=== PATIENT | male | born 1970 | race Caucasian/White ===

== ENCOUNTER 2021-07-30 14:07 | Emergency (ER) | payer BC ==
[2021-07-30] MEDS ORDERED: Ondansetron 4 MG/2 ML SDV IVPUSH ONE (14:42)
[2021-07-30] MEDS ORDERED: HYDROmorphone 0.5 MG/0.5 ML Syringe IVPUSH ONE (14:42)
[2021-07-30] MEDS ORDERED: Dextrose 5%-0.9% NaCl 1,000 ML IV SCH (14:45)
[2021-07-30] MEDS ORDERED: Ketorolac 30 MG/ML SDV IVPUSH SCH (14:45)
--- NOTE | 2021-07-30 14:51 | EDM.PDOC ---
ED HPI GENERAL MEDICAL PROBLEM - General Chief Complaint: Chest Pain Stated Complaint: CHEST PAIN WHEN BREATHING Time Seen by Provider: 07/30/21 14:30 Source of Information: Reports: Patient History Limitations: Reports: No Limitations - History of Present Illness INITIAL COMMENTS - FREE TEXT/NARRATIVE: 51-year-old male presents to the ED complaining of severe left-sided parasternal and anterior chest pain that radiates up into his neck controlled with deep inspiration. It started last evening suddenly and is gradually increased in intensity. He reports coughing is unbearably painful. He is a smoker on average a pack per day. He denies fever chills but has been fatigued and lethargic the last 2 to 3 weeks. He did have a COVID-19 test 3 weeks ago which proved to be negative. He has been working 2 jobs with long hours. No real cold symptoms or nasal congestion. States he has is normal cough in the morning from smoking with no hemoptysis. Cannot take a full deep breath at this time due to severe sharp stab he pleuritic chest pain. Also has some pain in the central part of his chest but states that pain is much worse if he lies flat. He has not taken any medication for the pain. He has no allergies and currently is on no medication from a doctor. Onset: Sudden Onset Date: 07/29/21 Onset Time: 19:00 Duration: Hour(s):, Getting Worse Location: Reports: Chest (Left precordial parasternal chest pain rating up into his neck and throat left lateral neck worse by lying flat and deep breathing) Quality: Reports: Other (Strong sharp pleuritic chest pain with deep inspiration left chest) Severity: Severe (And on the 10) Improves with: Reports: Rest (Rest sitting up in shallow breathing help ease the discomfort) Worsens with: Reports: Movement (Worsened when lying flat or coughing.) Context: Reports: Other (Spontaneous occurrence). Denies: Activity ( Made worse by deep breathing.), Exercise, Lifting, Sick Contact, Trauma Associated Symptoms: Reports: No Other Symptoms, Chest Pain, Cough, cough w sputum (Normal smoker's cough but no worse than normal), Loss of Appetite, Shortness of Breath (Has not eaten at all today.). Denies: Confusion, Diaphoresis, Fever/Chills, Headaches, Malaise ( occasional sputum in the mornings), Nausea/Vomiting, Rash, Seizure ( Subjective shortness of breath is deep breathing makes the pain much worse), Syncope, Weakness Treatments CONSTRUCTION STONEMASON: Reports: Other (see below) (None.) Mid-Sternal Chest Pain Score (Numeric/FACES): 2 - Related Data Allergies Allergy/AdvReac Type Severity Reaction Status Date / Time No Known Allergies Allergy Verified 05/30/14 11:59 Home Meds: Home Meds Amoxicillin/Potassium Clav [Augmentin 500-125 Tablet] 1 each PO BID #16 tablet 07/30/21 [Rx] Diclofenac Sodium [Voltaren] 75 mg PO BIDMEALS #10 tab.cr 07/30/21 [Rx] oxyCODONE HCl/Acetaminophen [Percocet 5-325 mg Tablet] 1 - 2 each PO Q4H PRN #20 tablet 07/30/21 [Rx] predniSONE [Prednisone] 20 mg PO ASDIRECTED #15 tablet 07/30/21 [Rx] Past Medical History HEENT History: Reports: Impaired Vision Other HEENT History: readers Cardiovascular History: Reports: None Respiratory History: Reports: None Gastrointestinal History: Reports: None Genitourinary History: Reports: None Musculoskeletal History: Reports: Back Pain, Chronic, Other (See Below) Other Musculoskeletal History: Back surgeries x 4 with fusion and TENS unit implanted Neurological History: Reports: None Psychiatric History: Reports: None Endocrine/Metabolic History: Reports: None Oncologic (Cancer) History: Reports: None Dermatologic History: Reports: None - Past Surgical History Head Surgeries/Procedures: Reports: None HEENT Surgical History: Reports: Naso-Sinus Surgery GI Surgical History: Reports: Appendectomy Social & Family History - Family History Oncologic: Reports: Brain, Lung - Tobacco Use Tobacco Use Status *Q: Current Every Day Tobacco User Tobacco Use Within Last Twelve Months: Cigarettes (1 pack/day) - Caffeine Use Caffeine Use: Reports: Coffee, Tea - Living Situation & Occupation Living situation: Reports: (Currently working 2 jobs) Occupation: Employed ED ROS GENERAL - Review of Systems Review Of Systems: See Below Constitutional: Reports: Malaise, Fatigue (Which he blames on working 2 jobs and not getting much rest.). Denies: Fever, Chills HEENT: Reports: No Symptoms Respiratory: Reports: Shortness of Breath, Pleuritic Chest Pain, Cough (See history of present illness), Sputum. Denies: Wheezing Cardiovascular: Reports: Chest Pain (There is no sputum production in the mornings see history of present illness). Denies: Blood Pressure Problem, Claudication, Dyspnea on Exertion, Edema, Lightheadedness, Orthopnea Endocrine: Reports: Fatigue GI/Abdominal: Reports: No Symptoms : Reports: No Symptoms Musculoskeletal: Reports: Back Pain (Chronic low back pain much better since surgery patient has had 4 previous back surgeries as well as a transcutaneous nerve stimulator device implanted) Skin: Reports: No Symptoms Neurological: Reports: No Symptoms Psychiatric: Reports: No Symptoms Hematologic/Lymphatic: Reports: No Symptoms ED EXAM, GENERAL - Physical Exam Exam: See Below Exam Limited By: No Limitations General Appearance: Alert, WD/WN, Moderate Distress (Anxious in obvious pain and discomfort.), Other (Temperature is 36.1 degrees. Heart rate 72 and sinus. Respiratory is 18 with O2 sats of 99% on room air. BP 141/83) Eye Exam: Bilateral Eye: Normal Inspection, PERRL Throat/Mouth: Other (Oropharynx is mildly erythematous from cigarette smoking no signs of infection) Head: Atraumatic, Normocephalic Neck: Normal Inspection, Supple, Non-Tender, Full Range of Motion. No: Carotid Bruit, Lymphadenopathy (L), Lymphadenopathy (R) Respiratory/Chest: Chest Non-Tender, Respiratory Distress, Decreased Breath Sounds, Wheezing (Scattered wheezes both lung bases). No: Normal Breath Sounds, Rales (Mildly decreased in the lower 15% lung bradford bilaterally), Rhonchi Cardiovascular: Normal Peripheral Pulses, Regular Rate, Rhythm, No Edema, No Gallop, No Murmur, No Rub Peripheral Pulses: 2+: Posterior Tibial (L), Posterior Tibial (R), Dorsalis Pedis (L), Dorsalis Pedis (R), 3+: Carotid (L), Carotid (R) GI/Abdominal: Normal Bowel Sounds, Soft, Non-Tender, No Organomegaly, No Distention, Distended (Mildly distended tympany to percussion due to aerophagia.) Back Exam: Other (Multiple surgical scars midline of the lumbar spine from p revious surgeries. Has previous 4 surgeries with spinal fusion) Extremities: Normal Inspection, Normal Range of Motion, Non-Tender, No Pedal Edema Neurological: Alert, Oriented, CN II-XII Intact, Normal Cognition Psychiatric: Anxious Skin Exam: Warm, Dry, Intact, Normal Color, No Rash #1 Interpretation EKG Date: 07/30/21 Time: 15:24 Rhythm: NSR Rate (Beats/Min): 74 [place]: Normal P-Wave: Enlarged (Sitter mild left atrial hypertrophy) ST-T: Other (Diffuse early repolarization pattern V3 and V4 with ST segment elevation V5 and V6 concerning for possible infarct. There is also mild ST segment elevation in lead I and lead II. This would lend itself more to a possible pericarditis) QT: Normal EKG Interpretation Comments: Abnormal ECG Course - Vital Signs Last Recorded V/S: Last Vital Signs Temp 36.1 C 07/30/21 14: Pulse 72 07/30/21 14: Resp 18 07/30/21 14: BP 141/83 H 07/30/21 14:21 Pulse Ox - Orders/Labs/Meds Orders: Active Orders 24 hr Category Date Time Status Dextrose 5%-0.9% NaCl [Dextrose 5%-Normal Saline] 1,000 Med 07/30/21 14:45 Active ml IV ASDIRECTED Ketorolac [Toradol] Med 07/30/21 14:45 Active 30 mg IVPUSH ONETIME Medication Orders Dextrose/Sodium Chloride (Dextrose 5%-Normal Saline) 1,000 mls @ 500 mls/hr IV ASDIRECTED ELSY Last Admin: 07/30/21 16:00 Dose: 500 mls/hr Documented by: [id number] Ketorolac Tromethamine (Ketorolac 30 Mg/Ml Sdv) 30 mg IVPUSH ONETIME ELSY Last Admin: 07/30/21 16:01 Dose: 30 mg Documented by: [id number] Labs: Laboratory Tests 07/30/21 07/30/21 07/30/21 Range/Units 15:50 15:50 15:50 WBC 11.52 H (4.23-9.07) K/mm3 RBC 5.44 (4.63-6.08) M/mm3 Hgb 16.7 (13.7-17.5) gm/dl Hct 49.1 (40.1-51.0) % MCV 90.3 (79.0-92.2) fl MCH 30.7 (25.7-32.2) pg MCHC 34.0 (32.2-35.5) g/dl RDW Std Deviation 46.7 H (35.1-43.9) fL Plt Count 208 (163-337) K/mm3 MPV 10.6 (9.4-12.3) fl Neut % (Auto) 64.8 (34.0-67.9) % Lymph % (Auto) 23.0 (21.8-53.1) % [place] % (Auto) 10.2 (5.3-12.2) % Eos % (Auto) 1.0 (0.8-7.0) Baso % (Auto) 0.4 (0.1-1.2) % Neut # (Auto) 7.46 H (1.78-5.38) K/mm3 Lymph # (Auto) 2.65 (1.32-3.57) K/mm3 [place] # (Auto) 1.18 H (0.30-0.82) K/mm3 Eos # (Auto) 0.11 (0.04-0.54) K/mm3 Baso # (Auto) 0.05 (0.01-0.08) K/mm3 PT 10.8 (9.7-12.0) SECONDS INR 0.97 APTT 27.2 (21.7-31.4) SECONDS Sodium 136 (136-145) mEq/L Potassium 3.9 (3.5-5.1) mEq/L Chloride 104 (98-107) mEq/L Carbon Dioxide 25 (21-32) mEq/L Anion Gap 10.9 (5-15) BUN 12 (7-18) mg/dL Creatinine 1.0 (0.7-1.3) mg/dL Est Cr Clr Drug Dosing 111.38 mL/min Estimated GFR (MDRD) > 60 (>60) mL/min BUN/Creatinine Ratio 12.0 L (14-18) Glucose 96 (70-99) mg/dL Calcium 8.9 (8.5-10.1) mg/dL Magnesium 2.3 (1.8-2.4) mg/dL Total Bilirubin 0.9 (0.2-1.0) mg/dL AST 12 L (15-37) U/L ALT 23 (16-63) U/L Alkaline Phosphatase 75 (46-116) U/L CK-MB (CK-2) 0.6 (0-3.6) ng/ml Troponin I < 0.017 (0.00-0.056) ng/mL C-Reactive Protein 6.7 H* (<1.0) mg/dL NT-Pro-B Natriuret Pep (0-125) pg/mL Total Protein 7.9 (6.4-8.2) g/dl Albumin 3.9 (3.4-5.0) g/dl Globulin 4.0 gm/dL Albumin/Globulin Ratio 1.0 (1-2) SARS-CoV-2 RNA ([place]) (NEGATIVE) 07/30/21 07/30/21 Range/Units 15:50 16:00 WBC (4.23-9.07) K/mm3 RBC (4.63-6.08) M/mm3 Hgb (13.7-17.5) gm/dl Hct (40.1-51.0) % MCV (79.0-92.2) fl MCH (25.7-32.2) pg MCHC (32.2-35.5) g/dl RDW Std Deviation (35.1-43.9) fL Plt Count (163-337) K/mm3 MPV (9.4-12.3) fl Neut % (Auto) (34.0-67.9) % Lymph % (Auto) (21.8-53.1) % [place] % (Auto) (5.3-12.2) % Eos % (Auto) (0.8-7.0) Baso % (Auto) (0.1-1.2) % Neut # (Auto) (1.78-5.38) K/mm3 Lymph # (Auto) (1.32-3.57) K/mm3 [place] # (Auto) (0.30-0.82) K/mm3 Eos # (Auto) (0.04-0.54) K/mm3 Baso # (Auto) (0.01-0.08) K/mm3 PT (9.7-12.0) SECONDS INR APTT (21.7-31.4) SECONDS Sodium (136-145) mEq/L Potassium (3.5-5.1) mEq/L Chloride (98-107) mEq/L Carbon Dioxide (21-32) mEq/L Anion Gap (5-15) BUN (7-18) mg/dL Creatinine (0.7-1.3) mg/dL Est Cr Clr Drug Dosing mL/min Estimated GFR (MDRD) (>60) mL/min BUN/Creatinine Ratio (14-18) Glucose (70-99) mg/dL Calcium (8.5-10.1) mg/dL Magnesium (1.8-2.4) mg/dL Total Bilirubin (0.2-1.0) mg/dL AST (15-37) U/L ALT (16-63) U/L Alkaline Phosphatase (46-116) U/L CK-MB (CK-2) (0-3.6) ng/ml Troponin I (0.00-0.056) ng/mL C-Reactive Protein (<1.0) mg/dL NT-Pro-B Natriuret Pep 205 H (0-125) pg/mL Total Protein (6.4-8.2) g/dl Albumin (3.4-5.0) g/dl Globulin gm/dL Albumin/Globulin Ratio (1-2) SARS-CoV-2 RNA ([place]) Negative (NEGATIVE) Meds: Medications Generic Name Dose Route Start Last Admin Trade Name Freq PRN Reason Stop Dose Admin Dextrose/Sodium Chloride 1,000 mls @ 500 mls/hr 07/30/21 14:45 07/30/21 16:00 Dextrose 5%-Normal Saline IV 500 mls/hr ASDIRECTED ELSY Administration Ketorolac Tromethamine 30 mg 07/30/21 14:45 07/30/21 16:01 Ketorolac 30 Mg/Ml Sdv IVPUSH 30 mg ONETIME ELSY Administration Discontinued Medications Generic Name Dose Route Start Last Admin Trade Name Freq PRN Reason Stop Dose Admin Hydromorphone HCl 0.5 mg 07/30/21 14:42 07/30/21 16:01 Hydromorphone 0.5 Mg/0.5 Ml Syringe IVPUSH 07/30/21 14:43 0.5 mg ONETIME ONE Administration Methylprednisolone Sodium Succinate 125 mg 07/30/21 17:51 07/30/21 18:16 Methylprednisolone Sodium Succinate 125 Mg/2 Ml Sdv IVPUSH 07/30/21 17:52 125 mg ONETIME ONE Administration Ondansetron HCl 4 mg 07/30/21 14:42 07/30/21 16:01 Ondansetron 4 Mg/2 Ml Sdv IVPUSH 07/30/21 14:43 4 mg ONETIME ONE Administration - Radiology Interpretation Free Text/Narrative:: 51-year-old male presents to the ED with atypical left-sided chest pain. It is a very strong pleuritic component but is felt adjacent to the left sternum and radiates up into his throat and left lateral neck which we might see in a midline pneumothorax. He has not suffered any chest trauma. Pain started last evening rather abruptly and he slept very poorly. Pain is gradually intensified as the day is gone on today. He is splinting respirations on examination and pain is worsened by lying flat. O2 sats are 99% room air. Air entry to both lung bradford appears to be equal although the breath sounds are diminished to both lower lung bradford by about 15% with bilateral expiratory wheezes. Patient still smokes about a pack per day. Plan he will have a stat chest x-ray. ECG and labs to rule out myocardial infarction. He has no fever or concerns for COVID-19 illness at this time. Concern for possible pneumonia definitely pleuritic chest pain. - Re-Assessments/Exams Free Text/Narrative Re-Assessment/Exam: 07/30/21 15:24 chest x-ray reveals heart size and mediastinum to be within normal limits. Slight atelectasis is seen within the left lung base. Electrostimulating device is seen within the thoracic spine. Lung markings are mildly increased which appear chronic no acute parenchymal changes are seen. 07/30/21 17:44 Labs reveal a mildly elevated white count at 11.52. The differential is 65% neutrophils. Hemoglobin is 16.7 with hematocrit of 49.1 indicating mild hemoconcentration. Platelet count is 208,000. PT is 10.8 with an INR of 0.97. PTT is 27.2. Sodium is 136 with a potassium of 3.9. Chloride 104 the bicarb of 25. Anion gap is 10.9. BUN is 12 with a creatinine of 1.0 and a GFR greater than 60. Glucose is 96. Calcium is 8.9. Magnesium is 2.3. Liver function is normal. CK-MB fraction is 0.6. Troponin I is less than 0.017 . C-reactive protein is elevated at 6.7 BNP is 205. Total protein 7.9 with an albumin fraction of 3.9. COVID-19 screen is negative. 07/30/21 17:55: I have discussed the findings with the patient and his . He has a mixed picture with significant pleuritic pain left lung field but also in the midline parasternally suggesting possible inflammation of the pericardium and/or the medial aspect of the pleura. I could find no discrete pneumonia on chest x-ray. However he has an elevated white blood cell count 11.52 with a left shift as well as a mildly elevated CRP at 6.7 and COVID-19 screen is negative. I am therefore going to give him Solu-Medrol 125 mg IV now. He will be discharged home on Percocet tabs 5/ 325 mg strength 1 or 2 every 4-6 hours necessary for pain relief x20 tablets. Prednisone 20 mg twice daily for 5 days and then once in the morning only for another 5 days to reduce inflammation of the pleura and pericardium. Voltaren 75 mg twice daily for 5 days starting to lewis morning. Antibiotic will be Augmentin 500/125 mg strength twice daily for the next 8 days as his labs are suggestive of an infective process perhaps early pneumonia. I have asked him to follow-up in 72 hours with his primary care provider if not markedly improved. Departure - Departure Time of Disposition: 17:55 Disposition: Home, Self-Care 01 Reason for Transfer *Q: Other Condition: Fair Clinical Impression: Non-cardiac chest pain, Pleurisy without effusion Pericarditis Qualifiers: Pericarditis type: idiopathic Chronicity: acute Qualified Code(s): I30.0 - Acute nonspecific idiopathic pericarditis Prescriptions: Amoxicillin/Potassium Clav [Augmentin 500-125 Tablet] 1 each PO BID #16 tablet oxyCODONE HCl/Acetaminophen [Percocet 5-325 mg Tablet] 1 - 2 each PO Q4H PRN #20 tablet PRN Reason: pain relief. predniSONE [Prednisone] 20 mg PO ASDIRECTED #15 tablet Diclofenac Sodium [Voltaren] 75 mg PO BIDMEALS #10 tab.cr Instructions: Pericarditis, Pleurisy, [id number] Referrals: Urvashi Antoine, [facility] [Primary Care Provider] - Forms: ED Department Discharge Additional Instructions: Evaluation in the emergency room today in regards to the development of left- sided chest pain associated with pain along the breastbone or sternum rating up into your neck and throat intermittently. Symptoms started last night but became much more severe over the last 12 to 16 hours with inability to take a full deep breath upon arrival in the ED. Chest x-ray taken in through the ED is normal at this time with no signs of an infection process. COVID-19 screen proved to be negative. Lab test however reveal evidence of developing infection with a mildly elevated white blood cell count and elevated CRP suggesting an underlying bacterial infection developing likely within the left lung. There was no evidence of involvement of your heart aorta no signs of heart attack. This in turn is causing inflammation of the lining around your heart and lung on the left side which we call pericarditis and pleurisy respectively. You were treated in the emergency room with intravenous fluids and pain medication Toradol 30 mg with Dilaudid 1 mg and Reglan 7.5 mg for pain relief. Subsequently you were given initial dose of steroid Solu-Medrol 125 mg IV to relieve inflammation and pain but it will take 2 to 6 hours to start to work. Treatment at home is going to be antibiotic Augmentin 500/125 mg tablet--take 1 tablet twice daily starting tonight for the next 8 days to clear up chest infection. You will require pain medication Percocet 5/325 mg strength 1 or 2 every 4-6 hours necessary for pain relief until the anti-inflammatory medicines become effective which will usually be about 36 hours. You will need to take a medicine called prednisone 20 mg twice daily breakfast and supper for 5 days and then once a day in the morning only for another 5 days starting tomorrow morning. Similarly you will need to take an anti-inflammatory called Voltaren 75 mg twice daily for the next 5 days to help further reduce pain and inflammation lung lining and lining around your heart. Expect marked improvement over the next 72 hours. If not you should be seen again. Suggest follow-up with personal care physician in 8 to 10 days time if not completely back to normal. Sepsis Event Note (ED) - Focused Exam Vital Signs: Vital Signs Temp Pulse Resp BP 07/30/21 14:21 36.1 C 72 18 141/83 H - My Orders Last 24 Hours: My Active Orders 07/30/21 14:45 Dextrose 5%-0.9% NaCl [Dextrose 5%-Normal Saline] 1,000 ml IV ASDIRECTED Ketorolac [Toradol] 30 mg IVPUSH ONETIME - Assessment/Plan Last 24 Hours: My Active Orders 07/30/21 14:45 Dextrose 5%-0.9% NaCl [Dextrose 5%-Normal Saline] 1,000 ml IV ASDIRECTED Ketorolac [Toradol] 30 mg IVPUSH ONETIME
--- NOTE | 2021-07-30 15:13 | CR ---
Chest: Portable view of the chest was obtained. Comparison: Prior chest x-ray of 10/18/16. Heart size and mediastinum are within normal limits. Slight atelectasis is seen within the left lung base. Electro-stimulating device is seen within the thoracic spine. Lung markings are mildly increased which appear chronic. No acute parenchymal change is seen. Impression: 1. Atelectasis within the left lung base. 2. Other stable findings as noted above. 3. Nothing acute is definitely appreciated. Diagnostic code #2
[2021-07-30] MEDS ORDERED: methylPREDNISolone Sodium Succinate 125 MG/2 ML SDV IVPUSH ONE (17:51)
[2021-07-30 19:03] VITALS: BP 123/87; PULSE 66
== END 2021-07-30 18:30 | disposition home or self-care (01) ==
LOC: JD.ED 14:07
DX: I30.0 Acute nonspecific idiopathic pericarditis (principal); R09.1 Pleurisy; Z72.0 Tobacco use; Z20.822 Contact with and (suspected) exposure to COVID-19
CPT/HCPCS: 36415; 71045; 80053; 82553; 83735; 83880; 84484; 85025; 85610; 85730; 86140; 87635; 93005; 96374; 96375; 99285; J1170; J1885; J2405; J2930; J7042; 93010; 99284; U0002

== ENCOUNTER 2024-05-15 14:02 | Emergency (ER) | payer BC ==
[2024-05-15 14:22] VITALS: BP 163/120; PULSE 85
[2024-05-15] MEDS: Iopamidol 755 Mg/ML 100 ML Bottle IVPUSH ONE (16:07)
[2024-05-15] MEDS ORDERED: Sodium Chloride 0.9% 100 ML IV SCH (16:15)
== END 2024-05-15 19:56 | disposition home or self-care (01) ==
LOC: JD.ED 14:02
DX: I73.9 Peripheral vascular disease, unspecified (principal); Z90.49 Acquired absence of other specified parts of digestive tract; Z79.899 Other long term (current) drug therapy
CPT/HCPCS: 73706-26-RT; 73706-RT; 93971-26-RT; 93971-RT; 99283; 99284; Q9967